=== PATIENT | male | born 1955 | race African-American/Black ===

== ENCOUNTER 2018-03-03 10:55 | Inpatient (IN) | payer BC, OTHER ==
[~2018-03-03] VITALS: Ht 188 cm; Wt 102.1 kg
[~2018-03-03 10:55] MED LIST: METO25TA20 PO
--- NOTE | 2018-03-03 11:15 | NUR ---
PT BIB SELF C/O L SIDED FACIAL NUMBNESS WITHOUT WEAKNESS OR DROOP SINCE 0600 ON 03/02/18. PT REPORTS HE PRESENTED TO THE ER BECAUSE IT PERSISTED FOR OVER 24 HOURS. AMBULATORY STEADY GAIT. RESP EVEN UNLABORED. A/OX4. SPEECH CLEAR. NO VISION CHANGES. IN ER BED 13.
--- NOTE | 2018-03-03 11:48 | NUR ---
TEXTED DR. SANTANA FOR MRI BRAIN APPROVAL.
--- NOTE | 2018-03-03 12:00 | NUR ---
CALL FROM RADIOLOGY,MARIA L, MRI SCHEDULED AT 1300
--- NOTE | 2018-03-03 12:55 | NUR ---
PT TRANSPORTED TO MRI VIA WHEELCHAIR IN STABLE CONDITION
--- NOTE | 2018-03-03 15:00 | NUR ---
RESTING QUIETLY, NAD NOTED. ALL NEEDS ATTENDED TO. UPDATED PLAN OF CARE.
--- NOTE | 2018-03-03 16:34 | NUR ---
CALLED DR SCHROEDER, LEFT A VOICEMAIL.
[2018-03-03] MEDS ORDERED: METO25TA20 PO ×2 (16:38)
[2018-03-03] MEDS ORDERED: MAGN200T9 PO (16:38)
[2018-03-03] MEDS ORDERED: LISI-603 PO (16:38)
[2018-03-03] MEDS ORDERED: ATOR10TA PO (16:38)
--- NOTE | 2018-03-03 16:53 | NUR ---
CALLED DR SCHROEDER, LEFT A VOICEMAIL.
--- NOTE | 2018-03-03 17:32 | NUR ---
RESTING QUIETLY, NAD NOTED. ALL NEEDS ATTENDED TO. REPORT GIVE TO AMARA HOLLINS FOR ADMISSION. AWAITING MRI WITH CONTRAST.
--- NOTE | 2018-03-03 17:50 | NUR ---
PT TRANSPORTED TO MRI IN STABLE CONDITION VIA WHEELCHAIR
[2018-03-03 18:02] LABS: BASOPHILS # (AUTO) 0.1 /CMM (0.0-0.2); BASOPHILS % (AUTO) 0.6 % (0.0-2.0); EOSINOPHILS % (AUTO) 0.7 % (0.0-6.0); HEMATOCRIT 47 % (39-51); HEMOGLOBIN 16.5 g/dL (13.5-17.5); LYMPHOCYTES # (AUTO) 1.3 /CMM (0.8-4.8); LYMPHOCYTES % (AUTO) 14.4 % (20.0-44.0); MEAN CORPUSCULAR HGB CONC 35 g/dl (31.0-36.0); MEAN CORPUSCULAR VOLUME 86 fL (80-96); MONOCYTES # (AUTO) 0.4 /CMM (0.1-1.30); MONOCYTES % (AUTO) 4.5 % (2.0-12.0); NEUTROPHILS % (AUTO) 79.8 % (43.0-81.0); PLATELET COUNT (AUTO) 249 /CMM (150-450); RDW COEFFICIENT OF VARIATION 11.7 (11.5-15.0); WHITE BLOOD COUNT (AUTO) 8.9 K/uL (4.3-11.0)
[2018-03-03 18:12] LABS: CALCIUM, SERUM 9.3 mg/dL (8.5-10.1)
--- NOTE | 2018-03-03 18:56 | NUR ---
PT TRANSPORTED TO [facility] IN STABLE CONDITION. TOLERATED MRI WITH CONTRAST WELL. Addendum: 03/03/18 at 1858 by HFOX PT TRANSPORTED DIRECTLY FROM MRI TO [facility]. I WAS TOLD BY MOBILE UNIT ASSISTANT THAT PT TOLERATED PROCEDURE.
[2018-03-03 19:30] VITALS: BP 130/85
--- NOTE | 2018-03-03 19:30 | NUR ---
RN NOTES RECEIVED PATIENT IN BED AWAKE, AO X 3, ABLE TO MAKE NEEDS KNOWN. NO ACUTE DISTRESS NOTED. DENIES ANY PAIN AT THIS TIME. NOTED A VERY SLIGHT DIFFERENCE BETWEEN PATIENT'S RIGHT AND LEFT SIDE OF LIPS WHEN PATIENT SMILES. LEFT SIDE OF FACE IS SLIGHTLY WEAKER. DX BRAIN TUMOR. IV SITE PATENT, INTACT; FLUSHED. SKIN INTACT. SAFETY REMINDERS GIVEN. ORIENTED TO ROOM AND UNIT. ON LOW BED WITH BILATERAL UPPER SIDE RAILS UP. CALL BAIRES WITHIN EASY REACH. WILL CONTINUE TO MONITOR. WILL CALL DR. UCRIEL FOR ADMISSION ORDERS.
[2018-03-03 20:00] VITALS: BP 135/85
[2018-03-03] MEDS ORDERED: ZOLPIDEM TARTRATE 5 MG TABLET PO PRN (21:30)
[2018-03-03] MEDS ORDERED: ACETAMINOPHEN 325 MG TABLET PO PRN (21:30)
[2018-03-03] MEDS: LEVETIRACETAM (250 MG) 250 MG TABLET PO SCH (21:57)
[2018-03-03] MEDS ORDERED: METOPROLOL TARTRATE 50 MG TABLET PO SCH (22:00)
[2018-03-03] MEDS ORDERED: ATORVASTATIN 10 MG TABLET PO SCH (22:00)
[2018-03-04] VITALS: BP 126/76
[2018-03-04] MEDS: DEXAMETHASONE SOD PHOSPHATE 4 MG/ML VIAL IV SCH ×2 (00:12→06:27)
[2018-03-04 04:00] VITALS: BP 120/71
--- NOTE | 2018-03-04 06:59 | NUR ---
RN NOTES PATIENT ASLEEP, EASILY AROUSABLE. RESPIRATIONS EVEN. NO SIGNS OF PAIN NOTED. DUE MEDS GIVEN WITH NO ASE NOTED. NEEDS ATTENDED. SAFETY PRECAUTIONS AND COMFORT MEASURES IN PLACE. WILL GIVE REPORT TO DAY SHIFT FOR CONTINUITY OF CARE.
--- NOTE | 2018-03-04 07:51 | NUR ---
DIRECTOR OF EDUCATION OPENING NOTES RECEIVED PT FROM NIGHTSHIFT NURSE IN STABLE CONDITION. PT IS A/O X3. NO SOB OR SIGNS OF DISTRESS NOTED. BREATHING IS EVEN AND UNLABORED. PT DENIES ANY PAIN AT THIS TIME. NO WEAKNESS NOTED. NO FACIAL DROOPING NOTED. PT IS SR ON THE TELE MONITOR WITH A HR OF 63. IV TO RIGHT AC NOTED TO BE PATENT AND INTACT. NO REDNESS OR SIGNS OF INFILTRATION NOTED. BED IN LOW LOCKED POSITION, SIDE RAILS UP X2, CALL LIGHT WITHIN REACH. WILL CONTINUE TO MONITOR
[2018-03-04 08:00] VITALS: BP 118/73
[2018-03-04] MEDS ORDERED: METOPROLOL TARTRATE 50 MG TABLET PO SCH (09:00)
[2018-03-04] MEDS ORDERED: LISINOPRIL (20MG) 20 MG TABLET PO SCH (09:00)
[2018-03-04] MEDS ORDERED: MAGNESIUM OXIDE 400 MG TABLET PO SCH (09:00)
[2018-03-04] MEDS: LEVETIRACETAM (250 MG) 250 MG TABLET PO SCH (09:05)
[2018-03-04 09:09] VITALS: BP 118/73
[2018-03-04] MEDS ORDERED: LEVE500T9 PO (09:47)
[2018-03-04] MEDS ORDERED: METH4TAB17 PO (09:50)
--- NOTE | 2018-03-04 13:11 | NUR ---
MS CARPET FLOOR LAYER APPRENTICE NOTES PT WAS DISCHARGED FROM HOSPITAL IN STABLE CONDITION. ALL NEEDS WERE MET DURING SHIFT AND ORDERS CARRIED OUT ACCORDINGLY. ALL DISCHARGE INSTRUCTIONS DISCUSSED IN FULL DETAIL WITH PT. HE VERBALIZED FULL UNDERSTANDING OF I INSTRUCTIONS AND FOLLOW UP APPOINTMENTS. PT SIGNED ALL DISCHARGE PAPERWORK AND BELONGINGS FORM. HE LEFT WITH ALL BELONGINGS, PAPERWORK MATERIALS, AND A CD OF HIS MRI IMAGING. IV WAS SUCCESSFULLY REMOVED WITH NO COMPLICATIONS. HE WAS SAFELY ESCORTED TO THE MAIN LOBBY BY THE SAMPLE DISPLAY PREPARER AND LEFT VIA UBER.
== END 2018-03-04 12:54 | disposition home or self-care (01) | DRG 74 ==
LOC: ER 11:00 → TELE 18:07 → EDBD 18:07 → MED 03-04 08:17
PROVIDERS: ADMIT Internal Medicine; ATTEND Internal Medicine
DX: G51.0 Bell's palsy (principal); D32.9 Benign neoplasm of meninges, unspecified; I10 Essential (primary) hypertension; E78.5 Hyperlipidemia, unspecified
CPT/HCPCS: 36415; 70551-TC; 70552-TC; 80048-TC; 85025-TC; 87081-TC; A4606; J1100; Z7610